=== PATIENT | female | born 1960 | race Caucasian/White ===

== ENCOUNTER 2017-07-13 15:57 | Outpatient (CLI) | payer OTHER | END 2017-07-13 15:58 | disposition critical access hospital (66) | LOC: EMS 15:57 | PROVIDERS: ATTEND Surgery | DX: M25.552 Pain in left hip (principal); W01.0XXA Fall on same level from slipping, tripping and stumbling without subsequent striking against object, initial encounter; Y92.89 Other specified places as the place of occurrence of the external cause | CPT/HCPCS: A0425; A0429 ==

== ENCOUNTER 2017-07-13 16:15 | Inpatient (IN) | payer OTHER ==
[2017-07-13] MEDS ORDERED: HYDROcod/ACETAM 5/325 MG TABLET PO STA (16:33)
--- NOTE | 2017-07-13 16:35 | ED Physician Documentation ---
PD HPI LOWER EXT INJURY - Stated complaint Stated Complaint: GLF - Chief complaint Chief Complaint: Ext Problem - History obtained from History obtained from: Patient - History of Present Illness PD HPI LOW EXT INJURY LOCATION: Other (She had a ground-level fall landing mostly on her left buttock and complains of left buttock and hip pain. She is able to stand up and bear weight but has not tried to walk it. No other injuries. 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 - Present Medications Home Medications: Ambulatory Orders Medication Instructions Recorded Confirmed No Known Home Medications [No 07/13/17 07/13/17 Known Home Medications] - Allergies Allergies/Adverse Reactions: Allergies Allergy/AdvReac Type Severity Reaction Status Date / Time No Known Drug Allergies Allergy Verified 07/13/17 16:26 - Social History Does the pt smoke?: No Smoking Status: Never smoker Does the pt drink ETOH?: No Does the pt have substance abuse?: No - Immunizations Immunizations are current?: Yes PD ED PE NORMAL - Vitals Vital signs reviewed: Yes - General General: Alert and oriented X 3, No acute distress - HEENT HEENT: PERRL, EOMI - Neck Neck: Supple, no meningeal sign, No bony TTP - Cardiac Cardiac: RRR, No murmur - Respiratory Respiratory: No respiratory distress, Clear bilaterally - Abdomen Abdomen: Normal bowel sounds, Soft, Non tender - Back Back: No CVA TTP, No spinal TTP - Extremities Extremities: Other (She has what seems to be muscular tenderness of the posterior left pelvic brim and buttock, no lateral hip tenderness. No pain with internal or external rotation of the hip and the remainder of her extremities are nontender.) - Neuro Neuro: Alert and oriented X 3, Normal speech - Psych Psych: Normal mood, Normal affect Results - Vitals Vitals: Vital Signs - 24 hr 07/13/17 07/13/17 16:23 19:09 Temperature 37.4 C Heart Rate 71 81 Respiratory 18 16 Rate Blood Pressure 169/99 H 127/83 H O2 Saturation 97 95 Oxygen O2 Source Room air - Labs Labs: Laboratory Tests 07/13/17 07/13/17 07/13/17 18:20 18:20 18:20 WBC 9.6 RBC 4.39 Hgb 14.1 Hct 42.4 MCV 96.4 MCH 32.1 H MCHC 33.3 RDW 13.3 Plt Count 180 MPV 9.2 Neut # 7.9 H Lymph # 1.0 L [place] # 0.6 Eos # 0.1 Baso # 0.0 Absolute Nucleated RBC 0.00 Nucleated RBC % 0.0 PT 13.0 H INR 1.2 Sodium 141 Potassium 3.4 L Chloride 107 Carbon Dioxide 25 Anion Gap 9.0 BUN 18 Creatinine 1.0 Estimated GFR (MDRD) 57 L Glucose 111 H Calcium 8.8 - Rads (name of study) L Hip /pelvis frx Radiology: EMP read contemporaneously (Nondisplaced fracture of the left superior pelvic pubic ramus with possible extension into the left acetabulum, recommend CT for further evaluation.) CT Pelvis Radiology: EMP read contemporaneously PD MEDICAL DECISION MAKING - ED course ED course: 56-year-old woman presents with a ground-level fall. Found to have pelvic frx. Poss acetabular component on xray and followed with CT and no acetabular component. Spoke with luisa Watson who will consult. Spoke with Dr. España for admit/jobs given inability to walk and necessity for IV pain medication at 7:35 PM. Departure - Departure Disposition: ED Place in Observation Clinical Impression: Fracture of left pelvis Qualifiers: Encounter type: initial encounter Pelvic bone location: pubis Sublocation of pubis: unspecified portion of pubis Fracture type: closed Qualified Code(s): S32.502A - Unspecified fracture of left pubis, initial encounter for closed fracture Condition: Stable
[2017-07-13] MEDS ORDERED: HYDROcod/ACETAM 5/325 MG TABLET ONE (16:46)
--- NOTE | 2017-07-13 18:04 | XRAY Preliminary Report ---
Exam: XR HIP W/PELVIS 2-3V LT IMPRESSION: Nondisplaced fracture of the left superior pubic ramus with possible extension into the l eft acetabulum. Correlation with CT recommended for further evaluation. [facility] SITE ID: [id number]
--- NOTE | 2017-07-13 18:06 | XRAY Report ---
EXAM: LEFT HIP AND PELVIS RADIOGRAPHY EXAM DATE: 07/13/2017 05:10 PM. HISTORY: Fall with injury and pain to the left hip COMPARISONS: None. TECHNIQUE: 1 view of the pelvis and 1 view of the hip. FINDINGS: Bones: There is a nondisplaced fracture of the left superior pubic ramus, with possible extension int o the left acetabulum. No other fractures or dislocations are identified. Joints: The pubis symphysis, and sacroiliac joints are preserved. Soft Tissues: Normal. No soft tissue swelling. IMPRESSION: Nondisplaced fracture of the left superior pubic ramus with possible extension into the l eft acetabulum. Correlation with CT recommended for further evaluation. [place] Referring Provider Line: [phone] SITE ID: [id number]
[2017-07-13] MEDS ORDERED: MORPHINE 10 MG/ML VIAL IVP STA (18:11)
[2017-07-13 19:09] LABS: BASOPHILS % (AUTO) 0.5 %; EOSINOPHILS # (AUTO) 0.1 10^3/uL (0.0-0.7); EOSINOPHILS % (AUTO) 0.8 %; HCT - HEMATOCRIT 42.4 % (37.0-47.0); HGB - HEMOGLOBIN 14.1 g/dL (12.0-16.0); LYMPHOCYTES % (AUTO) 10.5 %; MEAN CORPUSCULAR HEMOGLOBIN 32.1 pg (27.0-31.0); MEAN CORPUSCULAR HGB CONC 33.3 g/dL (32.0-36.0); MEAN CORPUSCULAR VOLUME 96.4 fL (81.0-99.0); MEAN PLATELET VOLUME 9.2 fL (7.9-10.8); MONOCYTES # (AUTO) 0.6 10^3/uL (0.0-1.0); MONOCYTES % (AUTO) 6.3 %; NEUTROPHILS # (AUTO) 7.9 10^3/uL (1.5-6.6); NEUTROPHILS % (AUTO) 81.9 %; RED BLOOD COUNT 4.39 10^6/uL (4.20-5.40); RED CELL DISTRIBUTION WIDTH 13.3 % (12.0-15.0); UNCORRECTED WHITE BLOOD COUNT 9.6 x10^3/uL; WHITE BLOOD COUNT 9.6 x10^3/uL (4.8-10.8)
[2017-07-13] MEDS ORDERED: MORPHINE 10 MG/ML VIAL ONE (19:11)
[2017-07-13 19:15] LABS: INR 1.2 (0.8-1.2)
--- NOTE | 2017-07-13 19:19 | CT Preliminary Report ---
Exam: CT PELVIS W/O IMPRESSION: 1. Small nondisplaced fracture involving the anterior-inferior left side of the sacrum. 2. Nondisplaced fracture at the lateral aspect of the left superior pubic ramus and minimally displac ed fracture at the left inferior pubic ramus. 3. No acetabular fractures. 4. The visualized proximal femurs are intact. A preliminary report was given Dr. Qian Cole on 07/13/2017, time 7:18 PM. [facility] SITE ID: [id number]
[2017-07-13 19:23] LABS: CALCIUM 8.8 mg/dL (8.5-10.3); POTASSIUM 3.4 mmol/L (3.5-5.0)
[2017-07-13] MEDS ORDERED: PROMETHAZINE 25 MG/1 ML VIAL IM PRN (19:52)
[2017-07-13] MEDS ORDERED: SODIUM CHLORIDE FLUSH 0.9% 10 ML SYRINGE IVP PRN (19:52)
[2017-07-13] MEDS ORDERED: PROCHLORPERAZINE 10 MG/2 ML VIAL IVP PRN (19:52)
[2017-07-13] MEDS ORDERED: ONDANSETRON 4 MG/2 ML VIAL IVP PRN (19:52)
[2017-07-13] MEDS ORDERED: ZOLPIDEM 5 MG TABLET PO PRN (19:52)
[2017-07-13] MEDS ORDERED: ACETAMINOPHEN 325 MG TABLET PO PRN (19:52)
[2017-07-13] MEDS ORDERED: MORPHINE 2 MG/ML SYRINGE IVP PRN (19:52)
[2017-07-13] MEDS: SODIUM CHLORIDE FLUSH 0.9% 10 ML SYRINGE IVP SCH (22:14)
--- NOTE | 2017-07-13 22:28 | HISTORY & PHYSICAL EXAMINATION ---
Chief Complaint - Chief Complaint Chief Complaint: Fall and left hip pain History of Present Illness - Admitted From Admitted From:: Emergency department - History Obtained From Records Reviewed: Yes History obtained from: Patient Exam Limitations: Patient has very difficult time moving in bed at all due to pain - History of Present Illness HPI Comment/Other: Patient is a 56-year-old female with a past medical history significant for a tubal ligation and ablation of her uterus and is otherwise healthy presenting to the emergency department with chief complaint of fall and left hip pain. The patient states that she was visiting her elderly mother for Thanksgiving and decided to help her out by taking the dogs out. She states that she had gotten to the door with the dogs and the dog leash slipped out of her hands. She states that she tripped over the dog leash and fell backwards onto her buttocks. She states that after the fall she had severe pain in her buttocks and left hip area. She states that she was able to get up and get over to a chair with the help of her mother's walker. She states that she was barely able to make it to the chair because of how severe the pain was every time she took a step. Once she was in the chair she states that if she just sat still the pain was tolerable however as soon as she tried to move the pain became intolerable. The patient could not get up out of the chair and therefore her called 911 and the patient was brought to the emergency department. The patient denies any fevers, chills, headache, blurred vision, runny nose, sore throat, nasal congestion, difficulty swallowing, neck pain, chest pain, shortness of air, orthopnea, PND, lower extremity swelling, abdominal pain, nausea, vomiting, diarrhea, constipation, dizziness, urinary urgency, urinary frequency, dysuria, joint swelling, muscle aches, neck stiffness, recent unintentional weight loss, changes in appetite or any focal neurologic deficits. On presentation to the emergency department the patient was hypertensive but otherwise vital signs were within normal limits. The patient did appear to be in severe pain she was given a dose of Vicodin and a dose of IV morphine in the emergency department. She states that she did have some relief with this medication however she continued to be in excruciating pain anytime she tried to move in the bed. The patient underwent x-ray of her left hip which showed a nondisplaced fracture of the left superior pubic ramus with possible extension into the left acetabulum. It was recommended that a CT be obtained for better evaluation. The patient underwent a CT of her pelvis which showed an acute left superior pubic ramus fracture at the lateral aspect which was minimally displaced. Also it showed an acute left anterior pubic ramus fracture which was also minimally displaced. The patient had no evidence of acute acetabular fracture. There was also acute left sacral alar fractures with minimal cortical step-offs seen at the anterior cortex. Given the multiple pelvic fractures the emergency room physician spoke with Dr. [place] the orthopedic surgeon diet consultant and he recommended that the patient be placed in observation for pain control and be weightbearing as tolerated and he would see her in the morning. He stated there was no need for any surgical intervention for this type of fracture but given that the patient could not bear weight at this time due to the severity of the pain she was placed in observation for pain control and physical therapy assessment. 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 Social History Notes: The patient was born and raised in [place], [place] but moved out to [place], [place] nearly 30 years ago now. The patient is and lives with her . She has 2 children and she works for an [employer]. She has never been a smoker, she does not drink alcohol and she denies any illicit drug use. - POLST Patient has POLST: No POLST Status: Full Code Meds/Allgy - Home Medications Home Medications: Ambulatory Orders Medication Instructions Recorded Confirmed No Known Home Medications [No 07/13/17 07/13/17 Known Home Medications] - Allergies Allergies/Adverse Reactions: Allergies Allergy/AdvReac Type Severity Reaction Status Date / Time No Known Drug Allergies Allergy Verified 07/13/17 16:26 Review of Systems - Other Findings Other Findings: A comprehensive review of systems was performed the pertinent positives and negatives are stated above in the HPI and the remainder of the review of systems is negative. Exam - Vital Signs Reviewed Vital Signs: Yes Vital Signs: Vital Signs x48h Temp Pulse Pulse Resp BP BP Pulse Ox 07/13/17 21:22 36.6 C 80 20 131/86 H 94 07/13/17 20:40 37.1 C 82 18 144/86 H 93 - Physical Exam General Appearance: positive: Alert, Moderate distress (Patient cannot move at all secondary to severe pain in her pelvic area and left hip) Eyes Bilateral: positive: Normal inspection, PERRL, EOMI, No lid inflammation, Conjunctivae nml, No scleral icterus ENT: positive: ENT inspection nml, Pharynx nml, No signs of dehydration. negative: Purulent nasal drainage, Pharyngeal erythema, Oral lesions Neck: positive: Nml inspection, Thyroid nml, No JVD, Trachea midline. negative : Thyromegaly, Lymphadenopathy (R), Lymphadenopathy (L), Stiff neck, Carotid bruit, Tracheal deviation Respiratory: positive: Chest non-tender, No respiratory distress, Breath sounds nml. negative: Wheezes, Rales, Rhonchi Cardiovascular: positive: Regular rate & rhythm, No murmur, No gallop Peripheral Pulses: positive: 2+ Abdomen: positive: Non-tender, No organomegaly, Nml bowel sounds, No distention. negative: Guarding, Rebound, Hepatomegaly Back: positive: Nml inspection. negative: CVA tenderness (R), CVA tenderness (L ) Skin: positive: Color nml, No rash, Warm. negative: Cyanosis, Pallor Extremities: positive: Non-tender, Full ROM, Nml appearance, No pedal edema Neurologic/Psychiatric: positive: Oriented x3, CN's nml (2-12), Motor nml, Sensation nml, Mood/affect nml Conclusion/Plan - Problem List (1) Multiple fractures of pelvis Conclusion/Plan: The patient presented to the emergency department with a fall after which she had severe left hip pain and could not bear weight without severe pain. The patient was found to have an acute left superior pubic ramus fracture at the lateral aspect with minimal displacement, as well as an acute left inferior pubic ramus fracture which also had minimal displacement. She was also found to have acute left sacral alar fractures with minimal cortical step-offs seen at the anterior cortex. The patient was treated with IV and p.o. pain medication in the emergency department but it was very obvious that the patient would not be able to go home as she could barely move in the bed due to the severity of her pain. Plan: Patient will get IV morphine and oral [place] for pain control We will consult orthopedic surgery Consult physical therapy Once patient's pain is controlled enough that she is able to bear weight on her legs and be safe to get around with a walker then the patient will be able to be discharged home with pain control. No surgical intervention is needed Qualifiers: Encounter type: initial encounter Fracture type: closed (2) Hypertension Conclusion/Plan: Patient's blood pressure is elevated on presentation to the emergency department and remained elevated in the emergency department. This is likely secondary to her pain. The patient does not have any previous diagnosis of hypertension. Plan: We will give the patient pain medication to better manage her pain We will continue to monitor the patient's blood pressures if they continue to be elevated despite controlled pain she will need to be considered for an antihypertensive (3) Prophylactic use of low molecular weight heparin for venous thromboembolism Conclusion/Plan: Placed on Lovenox for DVT prophylaxis - Lab Results Fish Bones: 07/13/17 18:20 07/13/17 18:20 - Diagnostic Imaging Results Diagnostic Imaging Results: positive: Final report reviewed Diagnostic Imaging Results Comments: Laboratory Results WBC 9.6 x10^3/uL (4.8-10.8) 07/13/17 18:20 RBC 4.39 10^6/uL (4.20-5.40) 07/13/17 18:20 Hgb 14.1 g/dL (12.0-16.0) 07/13/17 18:20 Hct 42.4 % (37.0-47.0) 07/13/17 18:20 MCV 96.4 fL (81.0-99.0) 07/13/17 18:20 MCH 32.1 pg (27.0-31.0) H 07/13/17 18:20 MCHC 33.3 g/dL (32.0-36.0) 07/13/17 18:20 RDW 13.3 % (12.0-15.0) 07/13/17 18:20 Plt Count 180 10^3/uL (130-450) 07/13/17 18:20 MPV 9.2 fL (7.9-10.8) 07/13/17 18:20 Neut # 7.9 10^3/uL (1.5-6.6) H 07/13/17 18:20 Lymph # 1.0 10^3/uL (1.5-3.5) L 07/13/17 18:20 [place] # 0.6 10^3/uL (0.0-1.0) 07/13/17 18:20 Eos # 0.1 10^3/uL (0.0-0.7) 07/13/17 18:20 Baso # 0.0 10^3/uL (0.0-0.1) 07/13/17 18:20 Absolute Nucleated RBC 0.00 x10^3/uL 07/13/17 18:20 Nucleated RBC % 0.0 /100WBC 07/13/17 18:20 PT 13.0 secs (9.9-12.6) H 07/13/17 18:20 INR 1.2 (0.8-1.2) 07/13/17 18:20 Sodium 141 mmol/L (135-145) 07/13/17 18:20 Potassium 3.4 mmol/L (3.5-5.0) L 07/13/17 18:20 Chloride 107 mmol/L (101-111) 07/13/17 18:20 Carbon Dioxide 25 mmol/L (21-32) 07/13/17 18:20 Anion Gap 9.0 (6-13) 07/13/17 18:20 BUN 18 mg/dL (6-20) 07/13/17 18:20 Creatinine 1.0 mg/dL (0.4-1.0) 07/13/17 18:20 Estimated GFR (MDRD) 57 (>89) L 07/13/17 18:20 Glucose 111 mg/dL (70-100) H 07/13/17 18:20 Calcium 8.8 mg/dL (8.5-10.3) 07/13/17 18:20 Blood Type A POSITIVE 07/13/17 18:40 Antibody Screen NEGATIVE 07/13/17 18:40 Issues/Core Measures - Anticipated LOS Anticipated Stay Length: Less than 2 midnights - DVT/VTE - Prophylaxis VTE/DVT Prophylaxis med ordered at admit?: Yes
[2017-07-14] MEDS: HYDROcod/ACETAM 10 MG/325 MG TABLET PO PRN ×3 (00:17→16:43)
[2017-07-14 06:22] LABS: BASOPHILS % (AUTO) 0.7 %; EOSINOPHILS # (AUTO) 0.2 10^3/uL (0.0-0.7); EOSINOPHILS % (AUTO) 3.4 %; HCT - HEMATOCRIT 41.6 % (37.0-47.0); HGB - HEMOGLOBIN 13.7 g/dL (12.0-16.0); LYMPHOCYTES # (AUTO) 1.4 10^3/uL (1.5-3.5); MEAN CORPUSCULAR HEMOGLOBIN 32.5 pg (27.0-31.0); MEAN CORPUSCULAR HGB CONC 32.9 g/dL (32.0-36.0); MEAN CORPUSCULAR VOLUME 98.8 fL (81.0-99.0); MEAN PLATELET VOLUME 8.9 fL (7.9-10.8); MONOCYTES # (AUTO) 0.4 10^3/uL (0.0-1.0); MONOCYTES % (AUTO) 6.8 %; NEUTROPHILS # (AUTO) 4.1 10^3/uL (1.5-6.6); NEUTROPHILS % (AUTO) 66.1 %; NUCLEATED RED BLOOD CELLS AUTO 0.1 /100WBC; RED BLOOD COUNT 4.21 10^6/uL (4.20-5.40); RED CELL DISTRIBUTION WIDTH 13.2 % (12.0-15.0); UNCORRECTED WHITE BLOOD COUNT 6.2 x10^3/uL; WHITE BLOOD COUNT 6.2 x10^3/uL (4.8-10.8)
[2017-07-14 06:28] LABS: ALBUMIN/GLOBULIN RATIO 0.8 (1.0-2.2); BILIRUBIN,TOTAL 0.5 mg/dL (0.2-1.0); CALCIUM 8.5 mg/dL (8.5-10.3); CREATININE 0.9 mg/dL (0.4-1.0); MAGNESIUM 1.6 mg/dL (1.7-2.8); PHOSPHORUS 3.1 mg/dL (2.5-4.6); POTASSIUM 3.5 mmol/L (3.5-5.0); TOTAL PROTEIN 6.8 g/dL (6.7-8.2)
[2017-07-14] MEDS: SODIUM CHLORIDE FLUSH 0.9% 10 ML SYRINGE IVP SCH ×3 (07:25→21:47)
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
[2017-07-14] MEDS: POLYETHYLENE GLYCOL 3350 17 GM PACKET PO SCH (08:43)
[2017-07-14] MEDS: FAMOTIDINE 20 MG TABLET PO SCH (08:46)
[2017-07-14] MEDS: ENOXAPARIN 40 MG/0.4 ML SYRINGE SUBQ SCH (08:46)
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
--- NOTE | 2017-07-14 09:52 | CT Report ---
EXAM: CT BONY PELVIS WITHOUT CONTRAST EXAM DATE: 07/13/2017 06:45 PM. CLINICAL HISTORY: Pelvic fractures. Possible acetabular fracture. COMPARISON: Left hip radiography from 07/13/2017. TECHNIQUE: Thin-section axial images were acquired of the pelvis without contrast. Post-processing: C oronal and sagittal reformats. Other: None. In accordance with CT protocol optimization, one or more of the following dose reduction techniques w ere utilized for this exam: automated exposure control, adjustment of mA and/or KV based on patient s ize, or use of iterative reconstructive technique. FINDINGS: Bones: Small nondisplaced fracture involving the anterior inferior left side of the sacrum. Nondispla mariajose fracture at the lateral aspect of the left superior pubic ramus. Minimally displaced fracture of the left inferior pubic ramus. No acetabular fractures. The visualized proximal femurs are intact. Sacroiliac Joints: No widening, erosions, or sclerosis. Symphysis Pubis: Unremarkable. Right Hip: The joint space is preserved. No calcified loose bodies. Left Hip: The joint space is preserved. No calcified loose bodies. Musculature: Normal. No fatty atrophy. Pelvic Cavity: The visualized bowel, bladder, and reproductive organs are unremarkable on this noncon trast exam. Other: No lymphadenopathy. No free air or free fluid. The other visualized soft tissues are unremarka ble. IMPRESSION: 1. Small nondisplaced fracture involving the anterior-inferior left side of the sacrum. 2. Nondisplaced fracture at the lateral aspect of the left superior pubic ramus and minimally displac ed fracture at the left inferior pubic ramus. 3. No acetabular fractures. 4. The visualized proximal femurs are intact. A preliminary report was given Dr. Qian Cole on 07/13/2017, time 7:18 PM. [facility] Referring Provider Line: [phone] SITE ID: [id number]
--- NOTE | 2017-07-14 18:26 | PROVIDER PROGRESS NOTE ---
Assessment/Plan - Problem List (1) Multiple fractures of pelvis Qualifiers: Encounter type: initial encounter Fracture type: closed Assessment/Plan: Appreciate Orthopedist's input. Will treat pain. Will assess pain with walking and Pt needs to be in a car for 2.5 hours to get home. (2) Acute pain due to trauma Assessment/Plan: Pt has adequate pain control when sitting still or when supine in bed. I discussed options for pain management with Pt. Physical Therapy also evaluated her and she cannot yet climb 2 steps without having 8-9/10 pain. She and her stated she will have to use a make- shift ramp to get into the house. Following that, she needs prophylaxis from a DVT and atelectasis. Will order TEDS stockings and Incentive Spirometry before DCh. Will transition to Inpt status for pain management. - Current Meds Current Meds: Current Medications Generic Name Dose Route Start Last Admin Trade Name Freq PRN Reason Stop Dose Admin Acetaminophen/Hydrocodone Bitart 1 tab 07/13/17 19:52 07/14/17 16:43 Disputanta 10 Mg/325 Mg PO 1 tab Q4HR PRN Administration Pain 8 to 10 Enoxaparin Sodium 40 mg 07/14/17 09:00 07/14/17 08:46 Lovenox SUBQ 40 mg DAILY NICHOLAS Administration Famotidine 20 mg 07/14/17 09:00 07/14/17 08:46 Pepcid PO Not Given DAILY NICHOLAS Morphine Sulfate 2 mg 07/13/17 19:52 07/13/17 22:14 Morphine IVP 2 mg Q2H PRN Administration Pain 8 to 10 Polyethylene Glycol 17 gm 07/14/17 09:00 07/14/17 08:43 Miralax PO Not Given DAILY NICHOLAS Sodium Chloride 10 ml 07/13/17 22:00 07/14/17 14:35 Normal Saline Flush 0.9% IVP 10 ml Q8HR NICHOLAS Administration - Lab Result Fish Bone Diagrams: 07/14/17 05:21 07/14/17 05:21 Objective Vital Signs: Vital Signs - 24 hr 07/13/17 07/13/17 07/14/17 20:40 21:22 00:14 Temperature 37.1 C 36.6 C 36.5 C Heart Rate 82 Heart Rate [ Activity] Heart Rate [ 80 85 Brachial] Heart Rate [ Sitting] Respiratory 18 20 20 Rate Blood Pressure 144/86 H Blood Pressure [Activity] Blood Pressure 131/86 H 144/83 H [Left Brachial artery] Blood Pressure [Sitting] O2 Saturation 93 94 96 O2 Saturation [ With Activity] 07/14/17 07/14/17 07/14/17 05:30 07:54 10:45 Temperature 36.9 C 36.7 C Heart Rate Heart Rate [ 81 Activity] Heart Rate [ 90 81 Brachial] Heart Rate [ 78 Sitting] Respiratory 20 18 Rate Blood Pressure Blood Pressure 107/76 [Activity] Blood Pressure 120/73 121/71 [Left Brachial artery] Blood Pressure 118/63 [Sitting] O2 Saturation 95 91 L O2 Saturation [ 96 With Activity] 07/14/17 07/14/17 12:39 16:41 Temperature 36.8 C Heart Rate Heart Rate [ 81 Activity] Heart Rate [ 80 Brachial] Heart Rate [ 78 Sitting] Respiratory 17 Rate Blood Pressure Blood Pressure 107/76 [Activity] Blood Pressure 108/75 [Left Brachial artery] Blood Pressure 118/63 [Sitting] O2 Saturation 98 O2 Saturation [ With Activity] Oxygen O2 Source [With Activity] Room air O2 Source Room air I&O (Last 24 Hrs): Intake and Output Totals x24h 07/12/17 07/13/17 07/14/17 23:59 23:59 23:59 Intake Total 240 1040 Balance 240 1040 - Results Results: Laboratory Results WBC 6.2 x10^3/uL (4.8-10.8) 07/14/17 05:21 RBC 4.21 10^6/uL (4.20-5.40) 07/14/17 05:21 Hgb 13.7 g/dL (12.0-16.0) 07/14/17 05:21 Hct 41.6 % (37.0-47.0) 07/14/17 05:21 MCV 98.8 fL (81.0-99.0) 07/14/17 05:21 MCH 32.5 pg (27.0-31.0) H 07/14/17 05:21 MCHC 32.9 g/dL (32.0-36.0) 07/14/17 05:21 RDW 13.2 % (12.0-15.0) 07/14/17 05:21 Plt Count 146 10^3/uL (130-450) 07/14/17 05:21 MPV 8.9 fL (7.9-10.8) 07/14/17 05:21 Neut # 4.1 10^3/uL (1.5-6.6) 07/14/17 05:21 Lymph # 1.4 10^3/uL (1.5-3.5) L 07/14/17 05:21 Beckham # 0.4 10^3/uL (0.0-1.0) 07/14/17 05:21 Eos # 0.2 10^3/uL (0.0-0.7) 07/14/17 05:21 Baso # 0.0 10^3/uL (0.0-0.1) 07/14/17 05:21 Absolute Nucleated RBC 0.00 x10^3/uL 07/14/17 05:21 Nucleated RBC % 0.1 /100WBC 07/14/17 05:21 PT 13.0 secs (9.9-12.6) H 07/13/17 18:20 INR 1.2 (0.8-1.2) 07/13/17 18:20 Sodium 141 mmol/L (135-145) 07/14/17 05:21 Potassium 3.5 mmol/L (3.5-5.0) 07/14/17 05:21 Chloride 107 mmol/L (101-111) 07/14/17 05:21 Carbon Dioxide 27 mmol/L (21-32) 07/14/17 05:21 Anion Gap 7.0 (6-13) 07/14/17 05:21 BUN 15 mg/dL (6-20) 07/14/17 05:21 Creatinine 0.9 mg/dL (0.4-1.0) 07/14/17 05:21 Estimated GFR (MDRD) 65 (>89) L 07/14/17 05:21 Glucose 115 mg/dL (70-100) H 07/14/17 05:21 Calcium 8.5 mg/dL (8.5-10.3) 07/14/17 05:21 Phosphorus 3.1 mg/dL (2.5-4.6) 07/14/17 05:21 Magnesium 1.6 mg/dL (1.7-2.8) L 07/14/17 05:21 Total Bilirubin 0.5 mg/dL (0.2-1.0) 07/14/17 05:21 AST 21 IU/L (10-42) 07/14/17 05:21 ALT 19 IU/L (10-60) 07/14/17 05:21 Alkaline Phosphatase 55 IU/L (42-121) 07/14/17 05:21 Total Protein 6.8 g/dL (6.7-8.2) 07/14/17 05:21 Albumin 3.1 g/dL (3.2-5.5) L 07/14/17 05:21 Globulin 3.7 g/dL (2.1-4.2) 07/14/17 05:21 Albumin/Globulin Ratio 0.8 (1.0-2.2) L 07/14/17 05:21 Blood Type A POSITIVE 07/13/17 18:40 Antibody Screen NEGATIVE 07/13/17 18:40
[2017-07-15] MEDS: HYDROcod/ACETAM 5/325 MG TABLET PO PRN ×2 (00:31→09:12)
[2017-07-15] MEDS: SODIUM CHLORIDE FLUSH 0.9% 10 ML SYRINGE IVP SCH (07:17)
--- NOTE | 2017-07-15 08:17 | PROVIDER PROGRESS NOTE ---
Subjective - Prog Note Date Prog Note Date: 07/15/17 Prog Note Time: 08:16 - Subjective Pt reports feeling: Improved (Less pain. Sitting up with less pain. No distal weakness/numbness) Objective - Vital Signs/Intake & Output Vital Signs: Vital Signs x48h Temp Pulse Resp BP Pulse Ox 07/15/17 07:41 37.1 C 93 16 130/78 97 07/15/17 00:25 36.8 C 83 17 132/86 H 96 - Lab Results Fish Bones: 07/14/17 05:21 07/14/17 05:21 Assessment/Plan - Problem List (1) Multiple fractures of pelvis Impression: Stable PLAN: Mobilize as tolerated. Likely discharge home today with local ortho follow up in about 1-2 weeks for repeat XR. Qualifiers: Encounter type: initial encounter Fracture type: closed
[2017-07-15] MEDS: ENOXAPARIN 40 MG/0.4 ML SYRINGE SUBQ SCH (09:11)
[2017-07-15] MEDS: POLYETHYLENE GLYCOL 3350 17 GM PACKET PO SCH (09:12)
[2017-07-15] MEDS: FAMOTIDINE 20 MG TABLET PO SCH (09:17)
[2017-07-15 11:21] VITALS: BP 143/77
--- NOTE | 2017-07-15 11:52 | Discharge Plan ---
Discharge Plan Disposition: Home, Self Care Condition: Stable Prescriptions: HYDROcod/ACETAM 5/325 [[place] 5/325] 1 tab PO Q4HR PRN #28 tablet PRN Reason: Pain 5 to 7 Diet: Regular Activity Restrictions: Wt Bearing as Tolerated Shower Restrictions: No Driving Restrictions: Yes (Check with her PCP when can resume) Weight Bearing: Full Weight Instruction Topics: ED Fx Pelvis Additional Instructions or Follow Up instructions: Use the pain medication as needed Use the incentive spirometer and TEDS stockings See your Primary Care Provider and an Orthopedic doctor in your hometown in 1-2 weeks, for a follow-up XRay and further recommendations. No Smoking: If you smoke, Please STOP! Call for help.
[2017-07-15] MEDS: HYDROcod/ACETAM 10 MG/325 MG TABLET PO PRN (13:17)
== END 2017-07-15 13:36 | disposition home or self-care (01) | DRG 948 ==
LOC: ED 16:15 → OBS 19:52 → OBSVTOIN 07-14 18:27 → MS2 07-14 20:48
PROVIDERS: ADMIT Internal Medicine; ATTEND Internal Medicine
DX: G89.11 Acute pain due to trauma (principal); S32.82XA Multiple fractures of pelvis without disruption of pelvic ring, initial encounter for closed fracture; W01.0XXA Fall on same level from slipping, tripping and stumbling without subsequent striking against object, initial encounter; Y92.008 Other place in unspecified non-institutional (private) residence as the place of occurrence of the external cause; Z98.51 Tubal ligation status; Z87.81 Personal history of (healed) traumatic fracture
CPT/HCPCS: 36415; 72192; 80048; 80053; 83735; 84100; 85025; 85610; 86850; 86900; 86901; 96372; 96374; 96376; 99283; 99284